=== PATIENT | female | born 1970 | race Caucasian/White ===

== ENCOUNTER 2017-04-22 15:33 | Emergency (ER) | payer SELFPAY ==
--- NOTE | 2017-04-22 16:36 | UC ---
Respiratory Complaint HPI - HPI Summary HPI Summary: Pt presents with cough. She tells me that about a week ago she developed a dry cough. Over the last few days her cough has gotten progressively worse. She has felt warm at times, but no specific fever. Has been taking OTC nyquill with little to no relief. She also complains of sternal discomfort - describing it as a "tightness" and painful when she breathes or coughs. This pain is not present at rest or with activity. Denies chest pain, abdominal pain, N/V/D/C, sinus congestion, or earache. - History of Current Complaint Chief Complaint: UCRespiratory Stated Complaint: COUGH Time Seen by Provider: 04/22/17 16:36 Hx Obtained From: Patient Hx Last Menstrual Period: 04/04/15 Onset/Duration: Gradual Onset Timing: Constant Severity Initially: Mild Severity Currently: Moderate Pain Intensity: 4 Pain Scale Used: 0-10 Numeric Character: Cough: Nonproductive Associated Signs And Symptoms: Positive: Dyspnea - Allergies/Home Medications Allergies/Adverse Reactions: Allergies Allergy/AdvReac Type Severity Reaction Status Date / Time No Known Allergies Allergy Verified 04/04/15 11:47 Home Medications: Home Medications Oelkzvpeabvud-Rabebwhhvm-Ditju [Nyquil Severe Cold/Flu 5-6.25-10-325 mg/15Ml] 1 liq PO 04/22/17 [History] PMH/Surg Hx/FS Hx/Imm Hx Previously Healthy: Yes Other History Of: Negative For: Anticoagulant Therapy - Surgical History Surgical History: Yes Surgery Procedure, Year, and Place: tubes in ear left - as a child - Family History Known Family History: Positive: Unknown - Social History Occupation: Employed Full-time Lives: With Family Alcohol Use: Occasionally Substance Use Type: None Smoking Status (MU): Heavy Every Day Tobacco Smoker Type: Cigarettes Cessation Counseling: Counseled 3+Min - 10 Min - Immunization History Most Recent Influenza Vaccination: never gets this Most Recent Tetanus Shot: up to date Review of Systems Constitutional: Fever Skin: Negative Eyes: Negative ENT: Negative Respiratory: Shortness Of Breath, Cough, Other - Tightness when breathing in sternum. Cardiovascular: Negative Gastrointestinal: Negative Musculoskeletal: Negative Neurological: Negative Psychological: Negative All Other Systems Reviewed And Are Negative: Yes Physical Exam Triage Information Reviewed: Yes Appearance: Well-Nourished, Ill-Appearing Vital Signs: Initial Vital Signs Temp 99.5 F 04/22/17 15:54 Pulse 96 04/22/17 15:54 Resp 18 04/22/17 15:54 BP 129/73 04/22/17 15:54 Pulse Ox 99 04/22/17 15:54 ENT: Positive: Hearing grossly normal, Pharynx normal, TMs normal, Uvula midline. Negative: Pharyngeal erythema, Nasal congestion, Nasal drainage, TM bulging, TM dull, TM red, Tonsillar swelling, Tonsillar exudate, Muffled voice, Hoarse voice, Sinus tenderness Neck: Positive: Supple, Nontender, No Lymphadenopathy Respiratory: Positive: Chest non-tender, Lungs clear, No respiratory distress, No accessory muscle use, Wheezing - Moderate Throughout. Negative: Crackles, Rhonchi Cardiovascular: Positive: RRR, No Murmur, Pulses Normal Neurological: Positive: Alert Psychological: Positive: Age Appropriate Behavior Skin: Negative: rashes UC Diagnostic Evaluation - Laboratory O2 Sat by Pulse Oximetry: 99 Respiratory Course/Dx - Course Course Of Treatment: CXR - negative. Duoneb - relief of breathing symptoms and breathing much more comfortably, but still coughing. EKG - NSR rate 86. - Differential Dx/Diagnosis Differential Diagnosis/HQI/PQRI: Asthma, Bronchitis, Influenza, Laryngitis, Lower Resp Infection, Pneumothorax, Pulmonary Embolism, Sinusitis, Tuberculosis Provider Diagnoses: Bronchitis. Laryngitis Discharge - Discharge Plan Condition: Stable Disposition: HOME Prescriptions: Albuterol HFA INHALER* [Ventolin HFA Inhaler*] 1 puff INH Q6H PRN #1 mdi PRN Reason: Sob/Wheezing Azithromycin TAB* [Zithromax TAB (Z-JOSÉ) 250 mg #6 tabs] 2 tab PO .TODAY, THEN 1 DAILY #1 josé predniSONE TAB* [Deltasone TAB*] 40 mg PO DAILY #20 tab Patient Education Materials: Laryngitis (ED), Acute Bronchitis (ED) Referrals: No Primary Care Phys,NOPCP [Primary Care Provider] - Additional Instructions: If you develop a fever, SOB, chest pain, new or worsening symptoms - please call your PCP or go to the ED. Please schedule a follow up appointment within 1 week with your PCP for recheck of your symptoms.
[2017-04-22] MEDS ORDERED: Albuterol/Ipratropium NEB.SOL* Albuterol 2.5 MG/Ipratropium 0.5 MG 3 ML INH ONE (17:06)
[2017-04-22] MEDS ORDERED: Albuterol/Ipratropium NEB.SOL* Albuterol 2.5 MG/Ipratropium 0.5 MG 3 ML ONE (17:08)
--- NOTE | 2017-04-22 17:23 | RAD ---
HISTORY: Cough COMPARISONS: None VIEWS: 4: Frontal dual-energy and lateral views of the chest. FINDINGS: CARDIOMEDIASTINAL SILHOUETTE: The cardiomediastinal silhouette is normal. LYLA: The lyla are normal. PLEURA: The costophrenic angles are sharp. No pleural abnormalities are noted. LUNG PARENCHYMA: The lungs are clear. ABDOMEN: The upper abdomen is clear. There is no subphrenic gas. BONES AND SOFT TISSUES: No bone or soft tissue abnormalities are noted. OTHER: None. IMPRESSION: NO ACTIVE CARDIOPULMONARY DISEASE.
[2017-04-22 18:02] VITALS: BP 125/89
== END 2017-04-22 18:24 | disposition home or self-care (01) ==
LOC: UCEAST 15:33
DX: J40 Bronchitis, not specified as acute or chronic (principal); J04.0 Acute laryngitis
CPT/HCPCS: 71020; 93005; 99212; A9270-GY; G0463

== ENCOUNTER 2017-04-23 13:04 | Emergency (ER) | payer BC ==
[2017-04-23 13:16] VITALS: BP 124/73
--- NOTE | 2017-04-23 14:07 | UC ---
General HPI - HPI Summary HPI Summary: PT SEEN HERE YESTERDAY AND TX FOR BRONCHITIS WITH ALBUTEROL, AZITH AND PREDNISONE. ABOUT AN HOUR AFTER TAKING PREDNISONE THIS MORNING PT DEVELOPED BILATERAL HAND CRAMPING. HAS BEEN COMING AND GOING THROUGHOUT THE DAY. ADMITS TO NOT DRINKING ANY WATER TODAY. HAS BEEN USING ALBUTEROL REGULARLY. FEELS BETTER WITH REGARDS TO RESPIRATORY SX. - History of Current Complaint Chief Complaint: UCGeneralIllness Stated Complaint: HANDS CRAMPED UP Time Seen by Provider: 04/23/17 13:38 Hx Obtained From: Patient Hx Last Menstrual Period: menopause Onset/Duration: Sudden Onset, Lasting Hours Timing: Intermittent Episodes Lasting: Onset Severity: Moderate Current Severity: Moderate Pain Intensity: 0 - Allergy/Home Medications Allergies/Adverse Reactions: Allergies Allergy/AdvReac Type Severity Reaction Status Date / Time No Known Allergies Allergy Verified 04/04/15 11:47 PMH/Surg Hx/FS Hx/Imm Hx Other Neurological History: BELLS PALSY SINCE AGE 9 Other History Of: Negative For: Anticoagulant Therapy - Surgical History Surgical History: Yes Surgery Procedure, Year, and Place: tubes in ear left - as a child - Family History Known Family History: Positive: Unknown - Social History Alcohol Use: Daily Substance Use Type: None Smoking Status (MU): Heavy Every Day Tobacco Smoker Type: Cigarettes - Immunization History Most Recent Influenza Vaccination: never gets this Most Recent Tetanus Shot: up to date Review of Systems Constitutional: Negative Skin: Negative Respiratory: Negative Cardiovascular: Negative Gastrointestinal: Negative Musculoskeletal: Arthralgia All Other Systems Reviewed And Are Negative: Yes Physical Exam Triage Information Reviewed: Yes Appearance: Well-Appearing, No Pain Distress, Well-Nourished Vital Signs: Initial Vital Signs Temp 98.3 F 04/23/17 13:10 Pulse 96 04/23/17 13:10 Resp 16 04/23/17 13:10 BP 124/73 04/23/17 13:10 Pulse Ox 97 04/23/17 13:10 Vital Signs Reviewed: Yes Eyes: Positive: Conjunctiva Clear ENT: Positive: Hearing grossly normal Neck: Positive: Supple Respiratory Exam: Normal Respiratory: Negative: Wheezing Cardiovascular Exam: Normal Abdomen Description: Positive: Soft Musculoskeletal: Positive: No Edema Neurological: Positive: Alert, Muscle Tone Normal, Other: - NO CRAMPING DURING ENCOUNTER Psychological: Positive: Age Appropriate Behavior Skin: Negative: rashes Course/Dx - Course Course Of Treatment: NO SX DURING ENCOUNTER. PT STATES THE CRAMPING AHS BEEN COMING AND GOING THROUGHOUT THE DAY. ADVISED TO DRINK WATER AND STRETCH. WILL CHECK CBC AND CMP. ADVISED TO GO TO ER IF SX WORSEN. - Differential Dx - Multi-Symptom Provider Diagnoses: BILATERAL HAND CRAMPING Discharge - Discharge Plan Condition: Stable Disposition: HOME Patient Education Materials: Muscle Cramp (ED) Forms: *Work Release Referrals: No Primary Care Phys,NOPCP [Primary Care Provider] - Additional Instructions: STOP THE PREDNISONE. CONTINUE YOUR ALBUTEROL AND ANTIBIOTIC. GO TO THE ER WITHOUT FAIL IF YOUR SYMPTOMS WORSEN. STAY WELL HYDRATED. LABS DRAWN TODAY INCLUDE BLOOD COUNT AND METABOLIC PANEL TO EVALUATE FOR ANEMIA , ELECTROLYTE ABNORMALITIES AND OTHER POSSIBLE UNDERLYING CAUSES OF CRAMPING. CALL THE NUMBER BELOW FOR ASSISTANCE IN ESTABLISHING WITH A PCP An additional resource available to assist in finding the appropriate physician for your health care needs is [facility] ([facility]). You may contact them by calling [phone].
[2017-04-23 18:58] LABS: Hematocrit 39 % (35-47); Hemoglobin 13.2 g/dl (12.0-16.0); Mean Corpuscular HGB Conc 34 g/dl (31-36); Mean Corpuscular Hemoglobin 31 pg (27-31); Mean Corpuscular Volume 91 fL (80-97); Mean Platelet Volume 10 um3 (7.4-10.4); Red Blood Count 4.32 10^6/ul (4.0-5.4); Red Cell Distribution Width 13 % (10.5-15); White Blood Count 11.9 10^3/ul (3.5-10.8)
[2017-04-23 19:09] LABS: Albumin 4.4 g/dL (3.2-5.2); BUN/Creatinine Ratio 23.3 (8-20); EGFR African American 109.9 (>60); EGFR Non-African American 85.5 (>60); Potassium 4.6 mmol/L (3.5-5.0); Total Bilirubin 0.5 mg/dL (0.2-1.0); Total Protein 7.4 g/dL (6.4-8.9)
--- NOTE | 2017-04-24 11:49 | UC ---
Progress - Progress Note Progress Note: CALLED PT TO DISCUSS LABS. LEFT MSG TO CALL BACK. SLIGHT INCREASE IN WBC COUNT MAY BE AN ACUTE REACTION TO CURRENT CONDITION. ELECTROLYTES ALL NORMAL. CONTINUE TO PUSH FLUIDS AND FOLLOW-UP WITH A PCP. CALL PHYSICIAN REFERRAL CENTER DISCUSSED DURING VISIT. - ABBY HARVEY MD
== END 2017-04-23 14:38 | disposition home or self-care (01) ==
LOC: UCEAST 13:04
DX: R25.2 Cramp and spasm (principal); D72.829 Elevated white blood cell count, unspecified; F17.210 Nicotine dependence, cigarettes, uncomplicated
CPT/HCPCS: 36415; 80053; 85025; 99211; G0463